=== PATIENT | male | born 1935 ===

== ENCOUNTER 2018-09-24 08:23 | Outpatient (CLI) | payer OTHER ==
[~2018-09-24] VITALS: Ht 165.1 cm; Wt 56.7 kg
== END 2018-09-24 11:23 | disposition home or self-care (01) ==
LOC: OFIC 805 08:23
DX: H90.3 Sensorineural hearing loss, bilateral (principal); J38.7 Other diseases of larynx; J31.0 Chronic rhinitis; J34.2 Deviated nasal septum

== ENCOUNTER 2019-09-18 07:17 | Outpatient (CLI) | payer OTHER | END 2019-09-18 07:21 | disposition home or self-care (01) | LOC: NUCLEAR 07:17 | PROVIDERS: ATTEND Internal Medicine Cardiovascular Disease | DX: I24.8 Other forms of acute ischemic heart disease (principal) | CPT/HCPCS: 78452; 93017; A9500 ==